=== PATIENT | male | born 1960 | race Two or more races ===

== ENCOUNTER 2021-08-02 07:20 | Observation (INO) | payer OTHER ==
[2021-08-02 07:50] VITALS: BMI 34.0
[2021-08-02] MEDS ORDERED: ASPIRIN 81 MG CHEWABLE TABLETS PO ONE (08:01)
[2021-08-02] MEDS ORDERED: ACETAMINOPHEN 1000 MG/100 ML BAG IVPB ONE (08:02)
[2021-08-02] MEDS ORDERED: ONDANSETRON 4 MG/2 ML VIAL ONE (08:06)
[2021-08-02] MEDS ORDERED: SODIUM CHLORIDE 0.9% 500 ML INFUS.BAG IV ONE (08:36)
[2021-08-02 08:40] LABS: INR 1.02 (0.83-1.09); PROTHROMBIN TIME (PATIENT) 11.7 SEC (9.7-13.0)
[2021-08-02 08:43] LABS: ACTIVATED PTT 32.1 SECONDS (25.2-36.5)
[2021-08-02 08:48] LABS: ALBUMIN 4.2 g/dl (3.4-5.0); BLOOD UREA NITROGEN 15.7 mg/dL (7-18); CALCIUM 8.8 mg/dL (8.5-10.1)
[2021-08-02 08:53] LABS: BILIRUBIN,TOTAL 0.4 mg/dL (0.2-1); TOT PROT 7.7 g/dl (6.4-8.2)
[2021-08-02 09:01] LABS: LACTIC ACID 2.4 mmol/L (0.4-2.0)
[2021-08-02 09:09] LABS: BASO % 0.2 % (0-2.0); EOS % 1.5 % (0-4.5); HEMOGLOBIN 15.5 GM/dL (11.7-16.9); LYMPH % 15.7 % (8-40); MCH 30.1 pg (25.7-33.7); MCHC 33.7 g/dl (32.0-35.9); MEAN CELL VOLUME 89.3 fl (80-96); MEAN PLT VOLUME 7.6 fl (7.5-11.1); MONO % 4.6 % (3.8-10.2); PLATELET COUNT 181 10^3/uL (134-434); RBC 5.15 M/mm3 (4.00-5.60); RDW 14.3 % (11.9-15.9); WHITE BLOOD COUNT 5.8 K/mm3 (4.0-10.0)
[2021-08-02] MEDS ORDERED: MECLIZINE HCL 25 MG TABLET (FP) PO ONE (09:13)
[2021-08-02] MEDS ORDERED: MECLIZINE HCL 25 MG TABLET (FP) ONE (09:41)
[2021-08-02] MEDS ORDERED: ACETAMINOPHEN INJECTION 100 ML IVPB ONE (11:15)
[2021-08-02 12:08] LABS: URINE APPEARANCE CLEAR; URINE BILIRUBIN NEGATIVE (NEGATIVE); URINE COLOR YELLOW; URINE GLUCOSE (UA) NEGATIVE (NEGATIVE); URINE KETONE NEGATIVE (NEGATIVE); URINE LEUK ESTERASE NEGATIVE (NEGATIVE); URINE NITRITE NEGATIVE (NEGATIVE); URINE PROTEIN NEGATIVE (NEGATIVE); URINE UROBILINOGEN 0.2 mg/dL (0.2-1.0)
[2021-08-02] MEDS ORDERED: ACETAMINOPHEN 325 MG TABLET (FP) PO PRN (12:30)
[2021-08-02] MEDS ORDERED: ATORVASTATIN CA 80 MG TABLET (FP) PO SCH (22:00)
[2021-08-03] MEDS ORDERED: ATORVASTATIN CA 80 MG TABLET (FP) ONE (02:10)
[2021-08-03 06:51] LABS: HEMATOCRIT 44.8 % (35.4-49); MCH 30.4 pg (25.7-33.7); MCHC 33.5 g/dl (32.0-35.9); MEAN CELL VOLUME 90.5 fl (80-96); PLATELET COUNT 176 10^3/uL (134-434); RBC 4.95 M/mm3 (4.00-5.60); RDW 14.5 % (11.9-15.9); WHITE BLOOD COUNT 5.9 K/mm3 (4.0-10.0)
[2021-08-03] MEDS: MECLIZINE HCL 25 MG TABLET (FP) PO SCH ×3 (06:59→10:30)
[2021-08-03 07:26] LABS: CALCIUM 8.5 mg/dL (8.5-10.1)
[2021-08-03 07:27] LABS: MAGNESIUM 2.4 mg/dL (1.8-2.4)
[2021-08-03 07:30] LABS: CREATININE 0.8 mg/dL (0.55-1.3)
[2021-08-03 08:04] VITALS: TEMP 98.2
[2021-08-03] MEDS ORDERED: metoPROLOL SUCCINATE 25 MG TAB.SR.24H (FP) ONE (09:36)
[2021-08-03] MEDS ORDERED: ASPIRIN COATED 81 MG TABLET.EC ONE (09:36)
[2021-08-03] MEDS ORDERED: CLOPIDOGREL BISULFATE 75 MG TABLET (FP) ONE (09:36)
[2021-08-03] MEDS ORDERED: ENOXAPARIN NA (PORCINE) 40 MG/0.4 ML DISP.SYRIN SQ ONE (09:36)
[2021-08-03] MEDS ORDERED: ASPIRIN COATED 81 MG TABLET.EC PO SCH (10:00)
[2021-08-03] MEDS ORDERED: LACTATED RINGERS SOLUTION 1,000 ML/1,000 ML INFUS.BAG IV SCH (10:00)
[2021-08-03] MEDS ORDERED: metoPROLOL SUCCINATE 25 MG TAB.SR.24H (FP) PO SCH (10:00)
[2021-08-03] MEDS ORDERED: CLOPIDOGREL BISULFATE 75 MG TABLET (FP) PO SCH (10:00)
[2021-08-03] MEDS ORDERED: ENOXAPARIN NA (PORCINE) 40 MG/0.4 ML DISP.SYRIN SQ SCH (10:00)
[2021-08-03 14:08] VITALS: BP 119/69; PULSE 67
== END 2021-08-03 14:05 | disposition home or self-care (01) ==
LOC: JER 07:20 → JERBED 08:33
PROVIDERS: ADMIT Internal Medicine; ATTEND Internal Medicine
PROC: 3E033NZ Introduction of Analgesics, Hypnotics, Sedatives into Peripheral Vein, Percutaneous Approach (ICD-10-PCS; principal; 2021-08-02)
PROC: 3E0337Z Introduction of Electrolytic and Water Balance Substance into Peripheral Vein, Percutaneous Approach (ICD-10-PCS; 2021-08-02)
DX: I25.10 Atherosclerotic heart disease of native coronary artery without angina pectoris (principal); R42 Dizziness and giddiness; K92.0 Hematemesis; E66.9 Obesity, unspecified; Z68.34 Body mass index [BMI] 34.0-34.9, adult; I10 Essential (primary) hypertension; I25.2 Old myocardial infarction; Z29.9 Encounter for prophylactic measures, unspecified
CPT/HCPCS: 36415; 70450-TC; 71045-TC-FY; 80048; 80053; 81003; 83605; 83690; 83735; 84100; 84484; 85025; 85027; 85610; 85730; 86850; 86900; 86901; 87086; 93005; 93010; 93306-TC; 96361; 96374; 99285-25; C9803; G0378; U0003; U0005

== ENCOUNTER 2023-06-25 18:48 | Emergency (ER) | payer SELFPAY ==
[2023-06-25 19:14] VITALS: BP 138/86; PULSE 88; RESP 17; TEMP 97.6; BMI 35.6
[2023-06-25] MEDS ORDERED: LORazepam 2 MG TABLET PO ONE (19:47)
[2023-06-25] MEDS ORDERED: LORazepam 1 MG TABLET ONE (20:37)
[2023-06-25 21:11] LABS: BASO % 0.4 % (0-2.0); EOS % 3.5 % (0-4.5); HEMATOCRIT 47.4 % (35.4-49); LYMPH % 24.5 % (8-40); MCH 30.2 pg (25.7-33.7); MCHC 33.8 g/dl (32.0-35.9); MEAN CELL VOLUME 89.3 fl (80-96); MEAN PLT VOLUME 7.7 fl (7.5-11.1); MONO % 11.1 % (3.8-10.2); NEUT % 60.5 % (42.8-82.8); PLATELET COUNT 221 10^3/uL (134-434); RDW 14.5 % (11.9-15.9); WHITE BLOOD COUNT 7.6 K/mm3 (4.0-10.0)
[2023-06-25 21:25] LABS: POTASSIUM 3.7 mmol/L (3.5-5.1)
[2023-06-25 21:27] LABS: CALCIUM 8.9 mg/dL (8.5-10.1)
[2023-06-25 21:28] LABS: ALBUMIN 3.9 g/dl (3.4-5.0); BLOOD UREA NITROGEN 15.9 mg/dL (7-18)
[2023-06-25 21:31] LABS: CREATININE 0.8 mg/dL (0.55-1.3)
[2023-06-25 21:32] LABS: TOT PROT 7.4 g/dl (6.4-8.2)
[2023-06-25 21:33] LABS: BILIRUBIN,TOTAL 0.4 mg/dL (0.2-1)
== END 2023-06-25 22:20 | disposition home or self-care (01) ==
LOC: JER 18:48
DX: F41.9 Anxiety disorder, unspecified (principal); G47.9 Sleep disorder, unspecified; R45.1 Restlessness and agitation; Z20.822 Contact with and (suspected) exposure to COVID-19
CPT/HCPCS: 0241U-QW; 36415; 80053; 84443; 84484; 85025; 93005; 93010; 99284-25

== ENCOUNTER 2023-07-07 02:32 | Emergency (ER) | payer SELFPAY ==
[2023-07-07 02:37] VITALS: RESP 16; BMI 36.6
[2023-07-07] MEDS ORDERED: ALPRAZolam 1 MG TABLET PO PRN (04:08)
[2023-07-07] MEDS ORDERED: ALPRAZolam 0.25 MG TABLET ONE (04:21)
[2023-07-07 05:08] VITALS: BP 106/73; PULSE 62; TEMP 98
[2023-07-07] MEDS ORDERED: ALPRAZolam 0.25 MG TABLET PO PRN (05:24)
[2023-07-07 05:32] LABS: BASO % 0.5 % (0-2.0); EOS % 3.2 % (0-4.5); HEMOGLOBIN 15.7 GM/dL (11.7-16.9); LYMPH % 15.9 % (8-40); MCH 30.6 pg (25.7-33.7); MCHC 34.1 g/dl (32.0-35.9); MEAN CELL VOLUME 89.6 fl (80-96); MONO % 7.5 % (3.8-10.2); NEUT % 72.9 % (42.8-82.8); PLATELET COUNT 217 10^3/uL (134-434); RBC 5.13 M/mm3 (4.00-5.60); RDW 14.6 % (11.9-15.9); WHITE BLOOD COUNT 7.2 K/mm3 (4.0-10.0)
[2023-07-07 05:39] LABS: POTASSIUM 3.9 mmol/L (3.5-5.1)
[2023-07-07 05:42] LABS: ALBUMIN 3.8 g/dl (3.4-5.0); BLOOD UREA NITROGEN 15.9 mg/dL (7-18)
[2023-07-07 05:45] LABS: CREATININE 0.8 mg/dL (0.55-1.3)
[2023-07-07 05:46] LABS: BILIRUBIN,TOTAL 0.5 mg/dL (0.2-1); TOT PROT 7.2 g/dl (6.4-8.2)
== END 2023-07-07 06:53 | disposition home or self-care (01) ==
LOC: JER 02:32
DX: F41.1 Generalized anxiety disorder (principal)
CPT/HCPCS: 36415; 80053; 85025; 99283-25